=== PATIENT | male | born 1955 | race Caucasian/White ===

== ENCOUNTER 2024-02-01 22:00 | Emergency (ER) | payer SELFPAY ==
[~2024-02-01] VITALS: Ht 175.3 cm; Wt 75.0 kg
[2024-02-01 22:32] LABS: BASOPHILS # (AUTO) 0.1 X10'3 (0-0.2); BASOPHILS % (AUTO) 0.9 % (0-1); EOSINOPHILS # (AUTO) 0.2 X10'3 (0-0.9); EOSINOPHILS % (AUTO) 1.5 % (0-6); HEMATOCRIT 44.8 % (42.0-52.0); HEMOGLOBIN 15.1 g/dl (14.0-17.9); LYMPHOCYTES % (AUTO) 28.5 % (21-51); MEAN CORPUSCULAR HGB CONC 33.8 g/dL (33.0-36.5); MEAN CORPUSCULAR VOLUME 85.8 FL (78-98); MEAN PLATELET VOLUME 8.3 FL (7.4-10.4); MONOCYTES % (AUTO) 9.8 % (2-12); NEUTROPHILS # (AUTO) 6.2 X10'3 (1.8-7.7); NEUTROPHILS % (AUTO) 59.3 % (42-75); PLATELET COUNT 285 X10'3 (140-440); RED BLOOD COUNT 5.22 X10'6 (4.70-6.10); RED CELL DISTRIBUTION WIDTH 16.1 % (11.5-14.5); WHITE BLOOD COUNT 10.5 X10'3 (4.5-11.0)
[2024-02-01 22:59] LABS: ALBUMIN 3.6 G/DL (3.4-5.0); ANION GAP 11 (8-16); BLOOD UREA NITROGEN 22 MG/DL (7-18); BUN/CREATININE RATIO 21.4 (10.0-20.0); CHLORIDE 102 MMOL/L (99-107); CREATININE 1.03 MG/DL (0.60-1.10); GLUCOSE 147 MG/DL (70-104); POTASSIUM 3.6 MMOL/L (3.5-5.1); PRO BRAIN NATRIURETIC PEPTIDE 370 PG/ML (0-125); SODIUM 142 MMOL/L (135-145); TOTAL CARBON DIOXIDE 29.2 MMOL/L (24-32); eCRCL 68 ML/MIN; eGFR 72 ML/MIN
[2024-02-02] MEDS ORDERED: iohexol 350MG/ML 100ml bottle IV ONE (00:18)
[2024-02-02] MEDS: cyclobenzaprine 10mg tablet PO ONE (00:23)
--- NOTE | 2024-02-02 00:28 | NUR ---
PATIENT TAKEN TO CT AT THIS TIME
[2024-02-02 02:19] VITALS: BP 162/92; PULSE 74; TEMP 96.6; O2SAT 96
[2024-02-02 02:40] VITALS: RESP 12
[2024-02-02] MEDS: HYDROcodone/acetaminophen 5mg/325mg tablet PO ONE (02:40)
== END 2024-02-02 02:43 | disposition left against medical advice (07) ==
LOC: ER 22:02
DX: M54.9 Dorsalgia, unspecified (principal); R07.89 Other chest pain; Z53.21 Procedure and treatment not carried out due to patient leaving prior to being seen by health care provider
CPT/HCPCS: 36415; 71045; 71275; 74174; 80048; 83735; 83880; 84484; 85025; 93005; Q9967

== ENCOUNTER 2024-02-08 16:52 | Emergency (ER) | payer SELFPAY ==
[~2024-02-08] VITALS: Ht 172.7 cm; Wt 72.0 kg
[2024-02-08 16:54] VITALS: BP 150/85; PULSE 98; RESP 16; TEMP 97.7; O2SAT 95
[2024-02-08] MEDS ORDERED: OXYC-145 PO (17:20)
== END 2024-02-08 17:37 | disposition home or self-care (01) ==
LOC: ER 16:53
DX: L98.9 Disorder of the skin and subcutaneous tissue, unspecified (principal)
CPT/HCPCS: 99283